=== PATIENT | female | born 1940 | race Caucasian/White ===

== ENCOUNTER → 2020-09-20 | Outpatient (CLI) | payer MEDICARE, OTHER ==
[2020-09-20 12:07] LABS: Basophils # (auto) 0.1 10 ^3/uL (0-0.2); Basophils % (auto) 1.4 % (0.0-2.0); Eosinophils # (auto) 0.3 10 ^3/uL (0-0.8); Eosinophils % (auto) 4.8 % (0.0-7.0); Hematocrit 37.5 % (36.0-46.0); Hemoglobin 12.9 g/dL (12.2-16.2); Lymphocytes # (auto) 1.7 10 ^3/uL (0.4-5.4); Lymphocytes % (auto) 27.3 % (10.0-50.0); Mean Corpuscular Hemoglobin 30.4 pg (28.0-32.0); Mean Corpuscular Hgb Conc. 34.4 g/dL (32.0-36.0); Mean Corpuscular Volume 88.1 fL (80.0-100.0); Monocytes # (auto) 0.5 10 ^3/uL (0-1.3); Monocytes % (auto) 8.6 % (0.0-12.0); Neutrophils # (auto) 3.7 10 ^3/uL (1.6-8.6); Neutrophils % (auto) 57.9 % (37.0-80.0); Nucleated Red Blood Cells % 0.1 %; Platelet Count (auto) 281 10^3/uL (140-450); Red Blood Cells 4.26 10^6/uL (4.0-5.20); Red Cell Distribution Width 12.4 % (11.8-14.3); White Blood Cell 6.3 10^3/uL (4.4-10.8)
[2020-09-20 12:20] LABS: Potassium 3.1 mmol/L (3.5-5.1)
[2020-09-20 12:27] LABS: BUN/Creatinine Ratio 15.7; Bilirubin, Total 0.9 mg/dL (0.2-1.0); Calcium 9.2 mg/dL (8.5-10.1); Total Protein 7.3 g/dL (6.4-8.2)
[2020-09-20 12:29] LABS: Free T4 (Free Thyroxine) 1.14 ng/dL (0.89-1.76)
== END | disposition home or self-care (01) ==
LOC: LAB 08:21
PROVIDERS: ATTEND Internal Medicine
DX: E11.9 Type 2 diabetes mellitus without complications (principal); D51.3 Other dietary vitamin B12 deficiency anemia; I10 Essential (primary) hypertension; E55.9 Vitamin D deficiency, unspecified; D64.9 Anemia, unspecified; R00.2 Palpitations; R53.1 Weakness; R30.0 Dysuria
CPT/HCPCS: 36415; 80053; 80061; 81003; 82306; 82607; 83036; 84439; 84443; 85025; 87086

== ENCOUNTER → 2021-01-18 | Outpatient (CLI) | payer MEDICARE, OTHER | END | disposition home or self-care (01) | LOC: Rad HDHVI 14:07 | PROVIDERS: ATTEND Internal Medicine Cardiovascular Disease | DX: I10 Essential (primary) hypertension (principal) | CPT/HCPCS: 93306 ==

== ENCOUNTER → 2021-02-01 | Outpatient (CLI) | payer MEDICARE, OTHER ==
[2021-02-01 12:53] LABS: Potassium 3.5 mmol/L (3.5-5.1)
[2021-02-01 13:05] LABS: BUN/Creatinine Ratio 15.5; Calcium 8.9 mg/dL (8.5-10.1)
== END | disposition home or self-care (01) ==
LOC: LAB 09:49
PROVIDERS: ATTEND Internal Medicine
DX: I10 Essential (primary) hypertension (principal); E03.9 Hypothyroidism, unspecified
CPT/HCPCS: 36415; 80048; 84439; 84443

== ENCOUNTER → 2021-02-11 | Outpatient (CLI) | payer MEDICARE, OTHER ==
[~2021-02-11] VITALS: Ht 167.6 cm; Wt 51.7 kg
[~2021-02-11] MED LIST: ADENOSINE 43 MG in GIVE UN-DILUTED 0 ML IV ONE; ADENOSINE 90 MG/30 ML INJ IV ONE; cloNIDine HCL 0.1 MG TAB ONE
== END | disposition home or self-care (01) ==
LOC: Rad HDHVI 09:13
PROVIDERS: ATTEND Internal Medicine
DX: R00.1 Bradycardia, unspecified (principal); R00.0 Tachycardia, unspecified; I10 Essential (primary) hypertension; E78.00 Pure hypercholesterolemia, unspecified; I25.10 Atherosclerotic heart disease of native coronary artery without angina pectoris
CPT/HCPCS: 78452; 93005; 96374; 96375; A9500; J0153

== ENCOUNTER → 2021-03-19 | Outpatient (CLI) | payer MEDICARE, OTHER | END | disposition home or self-care (01) | LOC: LAB 09:57 | PROVIDERS: ATTEND Internal Medicine | DX: E03.9 Hypothyroidism, unspecified (principal) | CPT/HCPCS: 36415; 84439; 84443 ==

== ENCOUNTER 2021-11-26 13:00 | Emergency (ER) | payer MEDICARE, OTHER ==
[~2021-11-26] VITALS: Ht 167.6 cm; Wt 44.9 kg
[2021-11-26 13:01] VITALS: BP 186/54
== END 2021-11-26 15:30 | disposition left against medical advice (07) ==
LOC: ER 13:00
DX: T78.40XA Allergy, unspecified, initial encounter (principal); Z53.21 Procedure and treatment not carried out due to patient leaving prior to being seen by health care provider; X58.XXXA Exposure to other specified factors, initial encounter

== ENCOUNTER 2022-05-29 13:05 | Inpatient (IN) | payer MEDICARE, OTHER ==
[~2022-05-29] VITALS: Ht 167.6 cm; Wt 94.3 kg
[2022-05-29 14:19] LABS: Basophils # (auto) 0.1 10 ^3/uL (0-0.2); Basophils % (auto) 0.9 % (0.0-2.0); Eosinophils # (auto) 0.4 10 ^3/uL (0-0.8); Hemoglobin 13.8 g/dL (12.2-16.2); Lymphocytes # (auto) 1.4 10 ^3/uL (0.4-5.4); Lymphocytes % (auto) 20.6 % (10.0-50.0); Mean Corpuscular Hemoglobin 28.2 pg (28.0-32.0); Mean Corpuscular Hgb Conc. 32.9 g/dL (32.0-36.0); Mean Corpuscular Volume 85.7 fL (80.0-100.0); Monocytes # (auto) 0.4 10 ^3/uL (0-1.3); Neutrophils # (auto) 4.5 10 ^3/uL (1.6-8.6); Neutrophils % (auto) 66.5 % (37.0-80.0); Nucleated Red Blood Cells % 0.7 %; Red Blood Cells 4.91 10^6/uL (4.0-5.20); Red Cell Distribution Width 12.9 % (11.8-14.3); White Blood Cell 6.8 10^3/uL (4.4-10.8)
[2022-05-29 14:39] LABS: Albumin 3.8 g/dL (3.4-5.0); Calcium 8.9 mg/dL (8.5-10.1); Magnesium 2.6 mg/dL (1.6-2.6); Potassium 3.5 mmol/L (3.5-5.1)
[2022-05-29 14:42] LABS: BUN/Creatinine Ratio 14.4; Bilirubin, Total 1.1 mg/dL (0.2-1.0); Total Protein 7.4 g/dL (6.4-8.2)
[2022-05-29] MEDS ORDERED: LACTATED RINGER'S 500 ML IV ONE (16:00)
[2022-05-29] MEDS ORDERED: METOPROLOL TARTRATE 50 MG TAB PO ONE (18:15)
[2022-05-29] MEDS ORDERED: SODIUM CHLORIDE 0.9% 1,000 ML IV SCH (18:15)
[2022-05-29] MEDS ORDERED: ACETAMINOPHEN 325 MG TAB PO PRN ×2 (18:15→22:00)
[2022-05-29] MEDS ORDERED: DOCUSATE SOD 100 MG CAP PO PRN ×2 (18:15→22:00)
[2022-05-29] MEDS ORDERED: ONDANSETRON HCL 4 MG/2 ML VIAL IV PRN ×2 (18:15→22:00)
[2022-05-29] MEDS ORDERED: HYDROcodone-ACET 5/325MG TAB PO PRN ×2 (18:15→22:00)
[2022-05-29] MEDS: DONEPEZIL HYDROCHLORIDE 5 MG TAB PO SCH (21:47)
[2022-05-29] MEDS: ASCORBIC ACID 500 MG TAB PO SCH (21:47)
[2022-05-29] MEDS: hydrALAZINE HCL 20 MG/ML VL IV PRN (23:09)
[2022-05-30 00:48] LABS: Urine Bacteria FEW /hpf (None Seen); Urine Blood Negative /uL (Negative); Urine Specific Gravity 1.011 (1.001-1.035); Urine WBC 8 /hpf (0 - 5)
[2022-05-30] MEDS ORDERED: LORazepam 2MG/ML-1ML VIAL ONE (04:51)
[2022-05-30] MEDS: LORazepam 2MG/ML-1ML VIAL IV PRN ×2 (04:58→23:55)
[2022-05-30] MEDS: METOPROLOL TARTRATE 50 MG TAB PO SCH ×3 (05:02→21:23)
[2022-05-30] MEDS ORDERED: METOPROLOL TARTRATE 50 MG TAB PO SCH ×2 (06:00→10:00)
[2022-05-30] MEDS ORDERED: HALOPERIDOL LACTATE 5 MG/ML INJ VIAL IM ONE (06:30)
[2022-05-30 07:17] LABS: Basophils # (auto) 0.1 10 ^3/uL (0-0.2); Basophils % (auto) 0.8 % (0.0-2.0); Eosinophils # (auto) 0.2 10 ^3/uL (0-0.8); Eosinophils % (auto) 2.9 % (0.0-7.0); Hematocrit 43.4 % (36.0-46.0); Hemoglobin 15.1 g/dL (12.2-16.2); Lymphocytes # (auto) 1.2 10 ^3/uL (0.4-5.4); Lymphocytes % (auto) 14.5 % (10.0-50.0); Mean Corpuscular Hemoglobin 29.7 pg (28.0-32.0); Mean Corpuscular Hgb Conc. 34.9 g/dL (32.0-36.0); Mean Corpuscular Volume 85.1 fL (80.0-100.0); Monocytes # (auto) 0.5 10 ^3/uL (0-1.3); Monocytes % (auto) 6.3 % (0.0-12.0); Neutrophils # (auto) 6.2 10 ^3/uL (1.6-8.6); Neutrophils % (auto) 75.5 % (37.0-80.0); Nucleated Red Blood Cells % 0.1 %; Red Cell Distribution Width 13.2 % (11.8-14.3); White Blood Cell 8.2 10^3/uL (4.4-10.8)
[2022-05-30 07:31] LABS: Calcium 9.3 mg/dL (8.5-10.1); Potassium 3.3 mmol/L (3.5-5.1)
[2022-05-30 07:37] LABS: BUN/Creatinine Ratio 16.2; Total Protein 7.9 g/dL (6.4-8.2)
[2022-05-30 09:00] VITALS: BP 149/115
[2022-05-30] MEDS: cefTRIAXone 1GM/50ML D5W 50 ML IV SCH (10:05)
[2022-05-30] MEDS: ENOXAPARIN SOD 30 MG/0.3 ML SYRINGE SC SCH (10:05)
[2022-05-30] MEDS: ASCORBIC ACID 500 MG TAB PO SCH ×2 (10:07→21:22)
[2022-05-30] MEDS: ZINC SULFATE 220mg CAP or TAB PO SCH (10:07)
[2022-05-30] MEDS: MULTIPLE VITAMIN TAB PO SCH (10:07)
[2022-05-30 13:00] VITALS: BP 196/97
[2022-05-30 17:00] VITALS: BP 170/75
[2022-05-30] MEDS: amLODIPine BESYLATE 5 MG TAB PO SCH (17:24)
[2022-05-30 20:00] VITALS: BP 133/65
[2022-05-30] MEDS: DONEPEZIL HYDROCHLORIDE 5 MG TAB PO SCH (21:22)
[2022-05-30] MEDS: LOSARTAN POTASSIUM 25 MG TAB PO SCH (21:24)
[2022-05-30 22:00] VITALS: BP 133/66
[2022-05-31] VITALS (7 sets, daily range): BP systolic 135–172; BP diastolic 60–91
[2022-05-31 06:23] LABS: Basophils # (auto) 0.1 10 ^3/uL (0-0.2); Basophils % (auto) 1.3 % (0.0-2.0); Eosinophils # (auto) 0.4 10 ^3/uL (0-0.8); Eosinophils % (auto) 4.5 % (0.0-7.0); Hematocrit 40.5 % (36.0-46.0); Hemoglobin 13.9 g/dL (12.2-16.2); Lymphocytes # (auto) 1.9 10 ^3/uL (0.4-5.4); Lymphocytes % (auto) 23.8 % (10.0-50.0); Mean Corpuscular Hemoglobin 29.4 pg (28.0-32.0); Mean Corpuscular Hgb Conc. 34.2 g/dL (32.0-36.0); Monocytes # (auto) 0.5 10 ^3/uL (0-1.3); Monocytes % (auto) 6.6 % (0.0-12.0); Neutrophils # (auto) 5.2 10 ^3/uL (1.6-8.6); Neutrophils % (auto) 63.8 % (37.0-80.0); Nucleated Red Blood Cells % 0.1 %; Red Blood Cells 4.71 10^6/uL (4.0-5.20); Red Cell Distribution Width 13.3 % (11.8-14.3); White Blood Cell 8.2 10^3/uL (4.4-10.8)
[2022-05-31 06:45] LABS: Albumin 3.5 g/dL (3.4-5.0)
[2022-05-31 06:48] LABS: BUN/Creatinine Ratio 24.4
[2022-05-31 06:50] LABS: Total Protein 6.6 g/dL (6.4-8.2)
[2022-05-31 06:54] LABS: Potassium 2.9 mmol/L (3.5-5.1)
[2022-05-31] MEDS: cefTRIAXone 1GM/50ML D5W 50 ML IV SCH (09:57)
[2022-05-31] MEDS: ZINC SULFATE 220mg CAP or TAB PO SCH (09:57)
[2022-05-31] MEDS: POTASSIUM CHL 20MEQ/100ML 100 ML IV SCH ×4 (09:57→16:40)
[2022-05-31] MEDS: amLODIPine BESYLATE 5 MG TAB PO SCH (10:00)
[2022-05-31] MEDS: ASCORBIC ACID 500 MG TAB PO SCH ×2 (10:00→21:39)
[2022-05-31] MEDS: MULTIPLE VITAMIN TAB PO SCH (10:00)
[2022-05-31] MEDS: ENOXAPARIN SOD 30 MG/0.3 ML SYRINGE SC SCH (10:01)
[2022-05-31] MEDS: METOPROLOL TARTRATE 50 MG TAB PO SCH ×2 (10:01→21:41)
[2022-05-31] MEDS: LOSARTAN POTASSIUM 25 MG TAB PO SCH ×2 (10:01→21:40)
[2022-05-31] MEDS: DONEPEZIL HYDROCHLORIDE 5 MG TAB PO SCH (21:40)
[2022-05-31] MEDS: hydrALAZINE HCL 20 MG/ML VL IV PRN (21:50)
[2022-06-01] MEDS: LORazepam 2MG/ML-1ML VIAL IV PRN ×2 (04:33→20:26)
[2022-06-01 04:51] VITALS: BP 141/65
[2022-06-01 07:54] VITALS: BP 149/63
[2022-06-01] MEDS: cefTRIAXone 1GM/50ML D5W 50 ML IV SCH (08:59)
[2022-06-01] MEDS: METOPROLOL TARTRATE 50 MG TAB PO SCH ×2 (09:01→20:44)
[2022-06-01] MEDS: amLODIPine BESYLATE 5 MG TAB PO SCH (09:02)
[2022-06-01] MEDS: LOSARTAN POTASSIUM 25 MG TAB PO SCH ×2 (09:03→20:43)
[2022-06-01] MEDS: ASCORBIC ACID 500 MG TAB PO SCH ×2 (09:03→20:44)
[2022-06-01] MEDS: MULTIPLE VITAMIN TAB PO SCH (09:03)
[2022-06-01] MEDS: ZINC SULFATE 220mg CAP or TAB PO SCH (09:03)
[2022-06-01] MEDS: ENOXAPARIN SOD 40 MG/0.4 ML SYRINGE SC SCH (09:04)
[2022-06-01 17:00] VITALS: BP 172/75
[2022-06-01] MEDS ORDERED: METO-289 PO (18:01)
[2022-06-01] MEDS ORDERED: LORA0.5T20 PO (18:01)
[2022-06-01] MEDS ORDERED: ATOR10TA52 PO (18:01)
[2022-06-01 20:00] VITALS: BP 185/79
[2022-06-01] MEDS: hydrALAZINE HCL 20 MG/ML VL IV PRN (20:27)
[2022-06-01] MEDS: DONEPEZIL HYDROCHLORIDE 5 MG TAB PO SCH (20:42)
[2022-06-02] MEDS: LORazepam 2MG/ML-1ML VIAL IV PRN (03:55)
[2022-06-02 05:00] VITALS: BP 149/69
[2022-06-02] MEDS: cefTRIAXone 1GM/50ML D5W 50 ML IV SCH (08:27)
[2022-06-02] MEDS ORDERED: LOSA25TA38 PO (09:13)
[2022-06-02] MEDS ORDERED: AMLO-496 PO (09:13)
[2022-06-02] MEDS ORDERED: METO-159 PO (09:13)
[2022-06-02] MEDS ORDERED: CIPR-173 PO (09:13)
[2022-06-02] MEDS: ENOXAPARIN SOD 40 MG/0.4 ML SYRINGE SC SCH (10:10)
[2022-06-02] MEDS: ZINC SULFATE 220mg CAP or TAB PO SCH (10:12)
[2022-06-02] MEDS: amLODIPine BESYLATE 5 MG TAB PO SCH (10:12)
[2022-06-02] MEDS: ASCORBIC ACID 500 MG TAB PO SCH (10:12)
[2022-06-02] MEDS: LOSARTAN POTASSIUM 25 MG TAB PO SCH (10:13)
[2022-06-02] MEDS: MULTIPLE VITAMIN TAB PO SCH (10:13)
[2022-06-02] MEDS: METOPROLOL TARTRATE 50 MG TAB PO SCH (10:13)
[2022-06-02] MEDS ORDERED: METOPROLOL TARTRATE 1MG/1ML-5ML VIAL IV ONE (14:15)
[2022-06-02 15:47] VITALS: BP 118/62
[2022-06-02] MEDS ORDERED: CIPROFLOXACIN HCL 500 MG TAB PO SCH (22:00)
== END 2022-06-02 16:16 | disposition home or self-care (01) | DRG 304 ==
LOC: ER 13:05 → TELE 21:54 → TELE-CENTR 05-30 08:03
PROVIDERS: ADMIT Hospitalist; ATTEND Family Medicine
DX: I16.1 Hypertensive emergency (principal); E43 Unspecified severe protein-calorie malnutrition; N39.0 Urinary tract infection, site not specified; Z68.1 Body mass index [BMI] 19.9 or less, adult; R55 Syncope and collapse; M19.90 Unspecified osteoarthritis, unspecified site; F03.90 Unspecified dementia, unspecified severity, without behavioral disturbance, psychotic disturbance, mood disturbance, and anxiety; I45.10 Unspecified right bundle-branch block; W18.39XA Other fall on same level, initial encounter; I10 Essential (primary) hypertension; I35.0 Nonrheumatic aortic (valve) stenosis; Z20.822 Contact with and (suspected) exposure to COVID-19; Z88.2 Allergy status to sulfonamides; Y93.89 Activity, other specified; Y92.89 Other specified places as the place of occurrence of the external cause; Y99.8 Other external cause status
CPT/HCPCS: 36415; 70450; 71045; 72125; 72170; 76536; 80053; 80061; 81001; 83735; 83880; 84439; 84443; 84484; 85025; 85379; 87086; 93005; 93306; 93886; 96360; 96372; G0378; J0696; J3480

== ENCOUNTER 2022-06-20 12:52 | Inpatient (IN) | payer MEDICARE, OTHER ==
[~2022-06-20] VITALS: Ht 167.6 cm; Wt 45.7 kg
[~2022-06-20 12:52] MED LIST changes: -ADENOSINE 43 MG in GIVE UN-DILUTED 0 ML IV ONE; -ADENOSINE 90 MG/30 ML INJ IV ONE; +AMLO-496 PO; +ATOR10TA52 PO; +CIPR-173 PO; +LORA0.5T20 PO; +LOSA25TA38 PO; +METO-159 PO; +METO-289 PO; -cloNIDine HCL 0.1 MG TAB ONE
[2022-06-20] MEDS ORDERED: METOPROLOL TARTRATE 50 MG TAB PO ONE (14:30)
[2022-06-20] MEDS ORDERED: amLODIPine BESYLATE 5 MG TAB PO ONE (14:30)
[2022-06-20] MEDS ORDERED: hydrALAZINE HCL 20 MG/ML VL IV ONE (16:45)
[2022-06-20 17:02] LABS: Basophils # (auto) 0.1 10 ^3/uL (0-0.2); Basophils % (auto) 1.3 % (0.0-2.0); Eosinophils # (auto) 0.2 10 ^3/uL (0-0.8); Eosinophils % (auto) 2.7 % (0.0-7.0); Hematocrit 42.2 % (36.0-46.0); Hemoglobin 13.9 g/dL (12.2-16.2); Lymphocytes # (auto) 1.8 10 ^3/uL (0.4-5.4); Lymphocytes % (auto) 26.1 % (10.0-50.0); Mean Corpuscular Hemoglobin 28.3 pg (28.0-32.0); Mean Corpuscular Volume 85.7 fL (80.0-100.0); Monocytes # (auto) 0.5 10 ^3/uL (0-1.3); Monocytes % (auto) 7.1 % (0.0-12.0); Neutrophils # (auto) 4.3 10 ^3/uL (1.6-8.6); Neutrophils % (auto) 62.8 % (37.0-80.0); Nucleated Red Blood Cells % 0.1 %; Red Blood Cells 4.92 10^6/uL (4.0-5.20); Red Cell Distribution Width 12.8 % (11.8-14.3); White Blood Cell 6.8 10^3/uL (4.4-10.8)
[2022-06-20 17:27] LABS: Albumin 4.1 g/dL (3.4-5.0); Calcium 9.2 mg/dL (8.5-10.1)
[2022-06-20 17:32] LABS: BUN/Creatinine Ratio 18.1; Bilirubin, Total 0.8 mg/dL (0.2-1.0); Total Protein 8.2 g/dL (6.4-8.2)
[2022-06-20] MEDS ORDERED: LABETALOL HCL 5 MG/ML 4ML SYRINGE IV PRN (17:45)
[2022-06-20 18:03] LABS: Urine Bacteria FEW /hpf (None Seen); Urine Blood Negative /uL (Negative); Urine Specific Gravity 1.005 (1.001-1.035); Urine WBC 2 /hpf (0 - 5)
[2022-06-20] MEDS ORDERED: DOCUSATE SOD 100 MG CAP PO PRN (18:15)
[2022-06-20] MEDS ORDERED: ONDANSETRON HCL 4 MG/2 ML VIAL IV PRN (18:15)
[2022-06-20] MEDS ORDERED: HYDROcodone-ACET 5/325MG TAB PO PRN (18:15)
[2022-06-20] MEDS ORDERED: ACETAMINOPHEN 325 MG TAB PO PRN (18:15)
[2022-06-20] MEDS ORDERED: HYDROmorphone HCL 2 MG/ML VL/or syr IV PRN (18:15)
[2022-06-20] MEDS ORDERED: hydrALAZINE HCL 20 MG/ML VL IV PRN (18:15)
[2022-06-20] MEDS: LOSARTAN POTASSIUM 25 MG TAB PO SCH (18:59)
[2022-06-20] MEDS: SODIUM CHLOR 0.9% PF (SALINE LOCK) 10ML VIAL/SYR IV SCH (22:00)
[2022-06-20] MEDS: ATORVASTATIN 20 MG TAB PO SCH (22:04)
[2022-06-21] MEDS: LORazepam 0.5 MG TAB PO PRN ×2 (04:22→19:39)
[2022-06-21] MEDS: SODIUM CHLOR 0.9% PF (SALINE LOCK) 10ML VIAL/SYR IV SCH ×3 (07:58→14:25)
[2022-06-21] MEDS ORDERED: LOSARTAN POTASSIUM 25 MG TAB PO SCH (10:00)
[2022-06-21] MEDS: LOSARTAN POTASSIUM 25 MG TAB PO SCH (10:06)
[2022-06-21] MEDS: amLODIPine BESYLATE 5 MG TAB PO SCH (10:07)
[2022-06-22] MEDS: ATORVASTATIN 20 MG TAB PO SCH ×2 (00:12→21:17)
[2022-06-22] MEDS: SODIUM CHLOR 0.9% PF (SALINE LOCK) 10ML VIAL/SYR IV SCH ×4 (00:13→21:19)
[2022-06-22 00:28] VITALS: BP 135/104
[2022-06-22 05:55] VITALS: BP 119/79
[2022-06-22 09:00] VITALS: BP 155/69
[2022-06-22] MEDS ORDERED: ENOXAPARIN SOD 40 MG/0.4 ML SYRINGE SC ONE (09:00)
[2022-06-22] MEDS ORDERED: METOPROLOL SUCCINATE XL 50 MG TAB PO ONE (09:15)
[2022-06-22] MEDS: METOPROLOL SUCCINATE XL 50 MG TAB PO SCH (09:24)
[2022-06-22] MEDS ORDERED: LABETALOL HCL 5 MG/ML 4ML SYRINGE IV ONE (09:30)
[2022-06-22] MEDS: amLODIPine BESYLATE 5 MG TAB PO SCH ×2 (10:00→10:50)
[2022-06-22] MEDS: LOSARTAN POTASSIUM 25 MG TAB PO SCH (10:00)
[2022-06-22] MEDS ORDERED: METOPROLOL SUCCINATE XL 50 MG TAB PO SCH (10:00)
[2022-06-22] MEDS: AMIODARONE HCL 200 MG TAB PO SCH ×2 (10:50→21:18)
[2022-06-22 13:00] VITALS: BP 143/68
[2022-06-22] MEDS: LORazepam 0.5 MG TAB PO PRN (14:47)
[2022-06-22 17:00] VITALS: BP 156/77
[2022-06-22 22:00] VITALS: BP 151/71
[2022-06-23 04:40] VITALS: BP 140/60
[2022-06-23] MEDS: SODIUM CHLOR 0.9% PF (SALINE LOCK) 10ML VIAL/SYR IV SCH (05:39)
[2022-06-23 09:00] VITALS: BP 132/63
[2022-06-23] MEDS ORDERED: ENOXAPARIN SOD 40 MG/0.4 ML SYRINGE SC SCH (10:00)
[2022-06-23] MEDS: AMIODARONE HCL 200 MG TAB PO SCH (11:06)
[2022-06-23] MEDS: LOSARTAN POTASSIUM 25 MG TAB PO SCH (11:07)
[2022-06-23] MEDS: METOPROLOL SUCCINATE XL 50 MG TAB PO SCH (11:08)
[2022-06-23] MEDS: amLODIPine BESYLATE 5 MG TAB PO SCH (11:09)
[2022-06-23] MEDS: LORazepam 0.5 MG TAB PO PRN (11:45)
[2022-06-23 13:00] VITALS: BP 159/70
[2022-06-23] MEDS ORDERED: AMLO-496 PO (13:40)
[2022-06-23] MEDS ORDERED: METO-289 PO (13:40)
[2022-06-23] MEDS ORDERED: LOSA25TA38 PO (13:40)
[2022-06-23] MEDS ORDERED: APIX5TAB PO (13:42)
[2022-06-23 15:11] VITALS: BP 132/63
== END 2022-06-23 16:26 | disposition home health service (06) | DRG 305 ==
LOC: ER 12:52 → OVERFLOW 18:09 → TELE-CENTR 06-21 23:25
PROVIDERS: ADMIT Internal Medicine; ATTEND Internal Medicine Nephrology
DX: I16.1 Hypertensive emergency (principal); I48.91 Unspecified atrial fibrillation; S00.93XA Contusion of unspecified part of head, initial encounter; I35.0 Nonrheumatic aortic (valve) stenosis; F03.90 Unspecified dementia, unspecified severity, without behavioral disturbance, psychotic disturbance, mood disturbance, and anxiety; W18.39XA Other fall on same level, initial encounter; I10 Essential (primary) hypertension; S00.81XA Abrasion of other part of head, initial encounter; Z20.822 Contact with and (suspected) exposure to COVID-19; Z88.2 Allergy status to sulfonamides; Y93.89 Activity, other specified; Y92.89 Other specified places as the place of occurrence of the external cause; Y99.8 Other external cause status
CPT/HCPCS: 36415; 70450; 71045; 80053; 81001; 83880; 84484; 85025; 93005; 96374; 96376; 97163; G0378; J3490

== ENCOUNTER → 2022-07-24 | Outpatient (CLI) | payer MEDICARE, OTHER ==
[~2022-07-24] VITALS: Ht 167.6 cm; Wt 44.5 kg
[~2022-07-24] MED LIST changes: +ADENOSINE 37 MG in GIVE UN-DILUTED 0 ML IV ONE; +ADENOSINE 90 MG/30 ML INJ IV ONE; +APIX5TAB PO; -CIPR-173 PO; -METO-159 PO
== END | disposition home or self-care (01) ==
LOC: Rad HDHVI 08:32
PROVIDERS: ATTEND Internal Medicine
DX: R07.9 Chest pain, unspecified (principal); E78.5 Hyperlipidemia, unspecified; I10 Essential (primary) hypertension; I48.20 Chronic atrial fibrillation, unspecified; I35.0 Nonrheumatic aortic (valve) stenosis; Z82.49 Family history of ischemic heart disease and other diseases of the circulatory system
CPT/HCPCS: 78452; 93005; 96374; 96375; A9500; J0153

== ENCOUNTER 2022-08-12 09:03 | Inpatient (IN) | payer MEDICARE, OTHER ==
[~2022-08-12] VITALS: Ht 167.6 cm; Wt 46.3 kg
[~2022-08-12 09:03] MED LIST changes: -ADENOSINE 37 MG in GIVE UN-DILUTED 0 ML IV ONE; -ADENOSINE 90 MG/30 ML INJ IV ONE
[2022-08-12] MEDS ORDERED: cefTRIAXone 1GM/50ML D5W 50 ML IV ONE (09:30)
[2022-08-12] MEDS ORDERED: CLINDAMYCIN 600MG IV 50 ML IV ONE (09:30)
[2022-08-12 09:34] LABS: Basophils # (auto) 0.1 10 ^3/uL (0-0.2); Basophils % (auto) 0.8 % (0.0-2.0); Eosinophils # (auto) 0.2 10 ^3/uL (0-0.8); Hematocrit 43.8 % (36.0-46.0); Hemoglobin 14.5 g/dL (12.2-16.2); Lymphocytes # (auto) 1.7 10 ^3/uL (0.4-5.4); Lymphocytes % (auto) 21.1 % (10.0-50.0); Mean Corpuscular Hemoglobin 28.5 pg (28.0-32.0); Mean Corpuscular Hgb Conc. 33.2 g/dL (32.0-36.0); Monocytes # (auto) 0.5 10 ^3/uL (0-1.3); Monocytes % (auto) 6.9 % (0.0-12.0); Neutrophils # (auto) 5.4 10 ^3/uL (1.6-8.6); Neutrophils % (auto) 68.2 % (37.0-80.0); Red Blood Cells 5.09 10^6/uL (4.0-5.20); Red Cell Distribution Width 13.5 % (11.8-14.3); White Blood Cell 7.9 10^3/uL (4.4-10.8)
[2022-08-12 09:50] LABS: Albumin 4.1 g/dL (3.4-5.0); Calcium 8.7 mg/dL (8.5-10.1)
[2022-08-12 09:53] LABS: BUN/Creatinine Ratio 13.6; Bilirubin, Total 0.6 mg/dL (0.2-1.0); Total Protein 7.9 g/dL (6.4-8.2)
[2022-08-12] MEDS ORDERED: NITROGLYCERIN 0.4 MG SL TAB SL PRN (19:15)
[2022-08-12] MEDS ORDERED: MORPHINE SULFATE INJ 2 MG/ml SYRG IV PRN (19:15)
[2022-08-12] MEDS ORDERED: ATORVASTATIN 20 MG TAB PO SCH (22:00)
[2022-08-12] MEDS: LORazepam 0.5 MG TAB PO PRN (22:18)
[2022-08-12] MEDS: POTASSIUM CHL 20 Meq TABLET PO SCH (22:18)
[2022-08-12] MEDS: APIXABAN 5 MG TAB PO SCH (22:19)
[2022-08-12] MEDS: FUROSEMIDE 20 MG/2 ML VIAL IV SCH (22:21)
[2022-08-12 23:20] LABS: Urine Bacteria NONE SEEN /hpf (None Seen); Urine Blood Negative /uL (Negative); Urine Specific Gravity 1.007 (1.001-1.035); Urine WBC <1 /hpf (0 - 5)
[2022-08-13] VITALS (7 sets, daily range): BP systolic 122–150; BP diastolic 58–86
[2022-08-13] MEDS ORDERED: amLODIPine BESYLATE 5 MG TAB PO SCH (10:00)
[2022-08-13] MEDS ORDERED: LOSARTAN POTASSIUM 25 MG TAB PO SCH (10:00)
[2022-08-13] MEDS ORDERED: METOPROLOL SUCCINATE XL 50 MG TAB PO SCH (10:00)
[2022-08-13] MEDS: POTASSIUM CHL 20 Meq TABLET PO SCH (10:54)
[2022-08-13] MEDS: APIXABAN 5 MG TAB PO SCH (10:54)
[2022-08-13] MEDS: FUROSEMIDE 20 MG/2 ML VIAL IV SCH (10:56)
[2022-08-13] MEDS: LORazepam 0.5 MG TAB PO PRN (16:47)
== END 2022-08-13 19:10 | disposition home or self-care (01) | DRG 291 ==
LOC: ER 09:03 → TELE 19:07 → TELE-WESTW 08-13 00:44
PROVIDERS: ADMIT Internal Medicine Cardiovascular Disease; ATTEND Internal Medicine Cardiovascular Disease
DX: I11.0 Hypertensive heart disease with heart failure (principal); I50.31 Acute diastolic (congestive) heart failure; L03.116 Cellulitis of left lower limb; J44.9 Chronic obstructive pulmonary disease, unspecified; Z20.822 Contact with and (suspected) exposure to COVID-19; Z66 Do not resuscitate; F02.80 Dementia in other diseases classified elsewhere, unspecified severity, without behavioral disturbance, psychotic disturbance, mood disturbance, and anxiety; G30.9 Alzheimer's disease, unspecified; Z88.2 Allergy status to sulfonamides
CPT/HCPCS: 36415; 80053; 81001; 83605; 84484; 85025; 85379; 87040; 93005; 96365; 96375; G0378; J0696; J3490

== ENCOUNTER → 2022-09-02 | Outpatient (CLI) | payer MEDICARE, OTHER ==
[~2022-09-02] MED LIST changes: +FURO1TAB33 PO; +HEPARIN IN NS 1000Units/500mL 1,500 ML ONE; +IOHEXOL 350 MG/ML 100ML IJ ONE; +LIDOCAINE 2%HCL (LOCAL ANESTH.) INJ 20ML MDV ONE; +POTA1TAB61 PO
[2022-09-02 12:35] LABS: Basophils # (auto) 0.1 10 ^3/uL (0-0.2); Basophils % (auto) 1.3 % (0.0-2.0); Eosinophils # (auto) 0.3 10 ^3/uL (0-0.8); Eosinophils % (auto) 4.5 % (0.0-7.0); Hematocrit 41.9 % (36.0-46.0); Lymphocytes # (auto) 1.4 10 ^3/uL (0.4-5.4); Lymphocytes % (auto) 22.6 % (10.0-50.0); Mean Corpuscular Hemoglobin 29.2 pg (28.0-32.0); Mean Corpuscular Hgb Conc. 33.6 g/dL (32.0-36.0); Monocytes # (auto) 0.5 10 ^3/uL (0-1.3); Monocytes % (auto) 8.1 % (0.0-12.0); Neutrophils % (auto) 63.5 % (37.0-80.0); Nucleated Red Blood Cells % 0.1 %; Red Blood Cells 4.81 10^6/uL (4.0-5.20); Red Cell Distribution Width 13.7 % (11.8-14.3); White Blood Cell 6.3 10^3/uL (4.4-10.8)
[2022-09-02 12:38] LABS: BUN/Creatinine Ratio 14.7; Calcium 8.8 mg/dL (8.5-10.1); Potassium 3.3 mmol/L (3.5-5.1)
[2022-09-02 13:15] LABS: INR 0.99 (0.9-1.15)
[2022-09-02 13:16] LABS: Partial Thromboplastin Time 27.4 sec (24.6-33.4)
== END | disposition home or self-care (01) ==
LOC: Rad HDHVI 08:57
PROVIDERS: ATTEND Internal Medicine Cardiovascular Disease
DX: Z01.818 Encounter for other preprocedural examination (principal); R94.31 Abnormal electrocardiogram [ECG] [EKG]; I70.0 Atherosclerosis of aorta; I35.0 Nonrheumatic aortic (valve) stenosis; R06.02 Shortness of breath; M47.814 Spondylosis without myelopathy or radiculopathy, thoracic region
CPT/HCPCS: 36415; 71046; 80048; 85025; 85610; 85730

== ENCOUNTER 2022-09-04 08:14 | Day surgery (SDC) | payer MEDICARE, OTHER ==
[2022-09-04] VITALS (7 sets, daily range): BP systolic 125–146; BP diastolic 54–66
[~2022-09-04] VITALS: Ht 167.6 cm; Wt 55.3 kg
[~2022-09-04 08:14] MED LIST changes: -APIX5TAB PO; -HEPARIN IN NS 1000Units/500mL 1,500 ML ONE; -IOHEXOL 350 MG/ML 100ML IJ ONE; -LIDOCAINE 2%HCL (LOCAL ANESTH.) INJ 20ML MDV ONE
[2022-09-04] MEDS ORDERED: POTASSIUM CHL 20 Meq TABLET PO ONE (08:15)
[2022-09-04] MEDS ORDERED: fentaNYL CITRATE 100 MCG/2 ML VL ONE (08:56)
[2022-09-04] MEDS ORDERED: ANGIOMAX 250 MG VIAL IV ONE (08:56)
[2022-09-04] MEDS ORDERED: SODIUM CHL 0.9% 0 ML ONE (08:57)
[2022-09-04] MEDS ORDERED: MIDAZOLAM HCL 2MG/2ML 2ml VIAL (1mg/ml) ONE (08:57)
== END 2022-09-04 12:05 | disposition home or self-care (01) ==
LOC: CATH 08:14
PROVIDERS: ATTEND Internal Medicine Cardiovascular Disease
DX: R07.89 Other chest pain (principal); I27.20 Pulmonary hypertension, unspecified; I10 Essential (primary) hypertension; E78.5 Hyperlipidemia, unspecified; Z79.899 Other long term (current) drug therapy; Z20.822 Contact with and (suspected) exposure to COVID-19
CPT/HCPCS: 93460; C1760; C1769; C1894; J1644; J2250; J3010; J7030; Q9967; U0003; 93456; 99152; 99153

== ENCOUNTER 2023-01-12 00:04 | Emergency (ER) | payer MEDICARE, OTHER ==
[~2023-01-12] VITALS: Ht 167.6 cm; Wt 47.2 kg
[2023-01-12] MEDS ORDERED: IODIXANOL 320MG/ML 100ML BTL IV ONE (01:14)
[2023-01-12 01:47] LABS: Basophils # (auto) 0.1 10 ^3/uL (0-0.2); Basophils % (auto) 1.6 % (0.0-2.0); Eosinophils # (auto) 0.3 10 ^3/uL (0-0.8); Eosinophils % (auto) 4.2 % (0.0-7.0); Lymphocytes % (auto) 12.8 % (10.0-50.0); Mean Corpuscular Hemoglobin 29.7 pg (28.0-32.0); Mean Corpuscular Hgb Conc. 33.3 g/dL (32.0-36.0); Mean Corpuscular Volume 88.9 fL (80.0-100.0); Monocytes # (auto) 0.5 10 ^3/uL (0-1.3); Monocytes % (auto) 6.3 % (0.0-12.0); Neutrophils # (auto) 5.8 10 ^3/uL (1.6-8.6); Neutrophils % (auto) 75.1 % (37.0-80.0); Red Blood Cells 4.72 10^6/uL (4.0-5.20); Red Cell Distribution Width 13.1 % (11.8-14.3); White Blood Cell 7.7 10^3/uL (4.4-10.8)
[2023-01-12 02:01] LABS: Albumin 3.2 g/dL (3.4-5.0); Calcium 7.9 mg/dL (8.5-10.1); INR 1.06 (0.9-1.15); Magnesium 2.2 mg/dL (1.6-2.6); Partial Thromboplastin Time 25.9 sec (24.6-33.4); Potassium 3.5 mmol/L (3.5-5.1)
[2023-01-12 02:04] LABS: Bilirubin, Total 0.5 mg/dL (0.2-1.0); Total Protein 6.9 g/dL (6.4-8.2)
[2023-01-12] MEDS ORDERED: hydrALAZINE HCL 20 MG/ML VL IV ONE (02:45)
[2023-01-12 03:00] VITALS: BP 164/71
== END 2023-01-12 03:17 | disposition short-term general hospital (02) ==
LOC: ER 00:04
DX: S00.81XA Abrasion of other part of head, initial encounter (principal); G81.94 Hemiplegia, unspecified affecting left nondominant side; I63.9 Cerebral infarction, unspecified; W22.8XXA Striking against or struck by other objects, initial encounter; Y93.89 Activity, other specified; Y92.89 Other specified places as the place of occurrence of the external cause; Y99.8 Other external cause status
CPT/HCPCS: 36415; 70450; 70496; 71045; 80053; 82553; 82962; 83735; 84484; 85025; 85610; 85730; 93005; 96374; 99285; J0360; Q9967

== ENCOUNTER 2023-05-23 11:52 | Emergency (ER) | payer MEDICARE, OTHER ==
[~2023-05-23] VITALS: Ht 167.6 cm; Wt 47.5 kg
[~2023-05-23 11:52] MED LIST changes: -AMLO-496 PO; +AMLO1TAB23 PO; +LORA-1121 PO; -LORA0.5T20 PO; +LOSA25TA15 PO; -LOSA25TA38 PO
[2023-05-23 13:03] LABS: Basophils # (auto) 0.1 10 ^3/uL (0-0.2); Basophils % (auto) 1.2 % (0.0-2.0); Eosinophils # (auto) 0.4 10 ^3/uL (0-0.8); Eosinophils % (auto) 5.5 % (0.0-7.0); Hematocrit 45.7 % (36.0-46.0); Hemoglobin 15.5 g/dL (12.2-16.2); Lymphocytes # (auto) 1.6 10 ^3/uL (0.4-5.4); Lymphocytes % (auto) 25.4 % (10.0-50.0); Mean Corpuscular Hemoglobin 30.2 pg (28.0-32.0); Mean Corpuscular Volume 88.7 fL (80.0-100.0); Monocytes # (auto) 0.5 10 ^3/uL (0-1.3); Neutrophils # (auto) 3.9 10 ^3/uL (1.6-8.6); Neutrophils % (auto) 59.9 % (37.0-80.0); Nucleated Red Blood Cells % 0.1 %; Red Blood Cells 5.15 10^6/uL (4.0-5.20); Red Cell Distribution Width 12.6 % (11.8-14.3); White Blood Cell 6.5 10^3/uL (4.4-10.8)
[2023-05-23 13:20] LABS: INR 1.1 (0.9-1.15); Partial Thromboplastin Time 26.8 SEC (24.5-34.5)
[2023-05-23 13:24] LABS: Albumin 4.1 g/dL (3.4-5.0); Calcium 8.5 mg/dL (8.5-10.1); Potassium 3.6 mmol/L (3.5-5.1)
[2023-05-23 13:27] LABS: BUN/Creatinine Ratio 14.9 (10.0-20.0); Bilirubin, Total 0.8 mg/dL (0.2-1.0); Total Protein 7.7 g/dL (6.4-8.2)
[2023-05-23 16:08] VITALS: BP 144/89
== END 2023-05-23 16:58 | disposition home or self-care (01) ==
LOC: ER 11:52
DX: I11.0 Hypertensive heart disease with heart failure (principal); I50.9 Heart failure, unspecified; I47.1 Supraventricular tachycardia; F03.90 Unspecified dementia, unspecified severity, without behavioral disturbance, psychotic disturbance, mood disturbance, and anxiety
CPT/HCPCS: 36415; 71045; 80053; 83880; 84484; 85025; 85379; 85610; 85730; 93005

== ENCOUNTER → 2023-06-09 | Outpatient (CLI) | payer MEDICARE, OTHER | END | disposition home or self-care (01) | LOC: Rad HDHVI 14:03 | PROVIDERS: ATTEND Internal Medicine Cardiovascular Disease | DX: I35.1 Nonrheumatic aortic (valve) insufficiency (principal); R00.2 Palpitations; E78.5 Hyperlipidemia, unspecified | CPT/HCPCS: 93306 ==

== ENCOUNTER → 2024-04-06 | Outpatient (CLI) | payer MEDICARE, OTHER ==
[~2024-04-06] MED LIST changes: +IOHEXOL 350 MG/ML 100ML IJ ONE; +LOSA-533 PO; -LOSA25TA15 PO; +POTA-215 PO; -POTA1TAB61 PO
[2024-04-06 13:10] VITALS: BP 202/87; PULSE 60; RESP 18; O2SAT 95
[2024-04-06] MEDS: cloNIDine HCL 0.1 MG TAB PO ONE (14:00)
[2024-04-06] MEDS: METOPROLOL TARTRATE 1MG/1ML-5ML VIAL IV ONE (14:27)
[2024-04-06] MEDS: cloNIDine HCL 0.1 MG TAB ONE (14:28)
[2024-04-06 14:56] VITALS: BP 178/60; PULSE 58; RESP 18; O2SAT 95
== END | disposition home or self-care (01) ==
LOC: Rad HDHVI 13:00
PROVIDERS: ATTEND Internal Medicine Cardiovascular Disease
DX: R18.8 Other ascites (principal); R31.9 Hematuria, unspecified
CPT/HCPCS: 74177; G0463; Q9967